=== PATIENT | female | born 1995 | race Hispanic/Latino ===

== ENCOUNTER 2017-11-03 22:56 | Emergency (ER) | payer OTHER ==
[2017-11-03] MEDS ORDERED: Ketorolac Tromethamine 30 MG/ML VIAL ONE (23:28)
== END 2017-11-03 23:45 | disposition home or self-care (01) ==
LOC: ERS 22:56
DX: M54.41 Lumbago with sciatica, right side (principal); F17.210 Nicotine dependence, cigarettes, uncomplicated
CPT/HCPCS: 96372; J1885

== ENCOUNTER 2018-03-01 22:35 | Emergency (ER) | payer OTHER ==
[2018-03-01] MEDS ORDERED: Ibuprofen 800 MG TAB ONE (22:42)
--- NOTE | 2018-03-01 23:36 | RAD ---
CHEST PA AND LATERAL: HISTORY: A 22-year-old female with a history of fever. FINDINGS: Heart size is normal. Lungs are clear. IMPRESSION: No acute intrathoracic disease. POS: [facility]
[2018-03-01 23:43] LABS: MONO NEGATIVE CONTROL ZONE White (Negative) (White); MONO POSITIVE CONTROL Pink Line (Positive) (PINK/RED); Mononucleosis NEGATIVE (NEGATIVE)
[2018-03-01 23:44] LABS: #Lymphocytes 1.9 thou/uL (1.20-3.40); #Neutrophils 6.4 thou/uL (1.40-6.50); %Basophils 0.4 % (0.0-1.0); %Eosinophils 0.3 % (0.0-10.0); %Lymphocytes 19.9 % (21.0-51.0); %Neutrophils 68.3 % (42.0-75.0); Hemoglobin 14.2 g/dL (12.0-16.0); Mean Corpuscular HGB CONC 34.6 g/dL (32.0-36.0); Mean Corpuscular Volume 83.6 fl (81.0-99.0); Mean Platelet Volume 7.9 fL (7.4-10.4); Platelet Count 252 thou/uL (130-400); RBC Distribution Width 12.4 % (11.5-14.5); White Blood Cell (WBC) Count 9.4 thou/uL (4.8-10.8)
[2018-03-02] LABS: BHCG - Serum Negative (NEGATIVE); Pregs Control Background? CLEAR/WHITE (CLR/WHITE); Pregs Control Bar Appear? YES (CONTROL BAR)
[2018-03-02 00:03] LABS: ALT (SGPT) 55 U/L (8-55); AST (SGOT) 34 U/L (5-34); Albumin 4.3 g/dL (3.5-5.0); Alkaline Phosphatase 93 U/L (40-150); Anion Gap 14 mmol/L (10-20); BUN (Urea Nitrogen) 10 mg/dL (7.0-18.7); Bilirubin, Total 0.7 mg/dL (0.2-1.2); Calc. Creatinine Clearance 0 mL/min (70-130); Calcium 9.1 mg/dL (7.8-10.44); Carbon Dioxide 22 mmol/L (22-29); Chloride 105 mmol/L (98-107); Estimated GFR-MDRD Greater than 90; Glucose 121 mg/dL (70-105); Potassium 3.6 mmol/L (3.5-5.1); Protein, Total 7.3 g/dL (6.0-8.3); Sodium 137 mmol/L (136-145)
[2018-03-02 00:06] LABS: Bilirubin Negative (Negative); Blood, Urine Moderate (Negative); Clarity CLEAR (Clear); Glucose, Urine (Dipstick) Negative (Negative); Leukocyte Small (Negative); Nitrite Negative (Negative); Protein, Urine (Dipstick) Negative (Neg-Trace); Specific Gravity, Urine 1.022 (1.002-1.036)
[2018-03-02 00:13] LABS: Pregnancy Test - Urine (BHCG) Negative (Negative); Pregu Control Background? CLEAR/WHITE (CLR/WHITE); Pregu Control Bar Appear? YES (CONTROL BAR); Specific Gravity 1.022 (1.002-1.036)
[2018-03-02 01:43] LABS: Bacteria/HPF None Seen HPF (None Seen); Crystals/HPF None Seen HPF (Negative); Hyaline Casts/LPF NONE SEEN LPF (0-3 Hyaline); Renal Epithelial None Seen HPF (0-3); Squamous Epithelial 0-3 HPF (0-3); Transitional Epithelial NONE SEEN HPF (0-3); WBC/HPF 0-3 HPF (0-3)
[2018-03-02] MEDS ORDERED: Dexamethasone 10 MG/ML VIAL ONE (01:46)
== END 2018-03-02 03:17 | disposition home or self-care (01) ==
LOC: ERS 22:35
DX: J20.9 Acute bronchitis, unspecified (principal); F17.210 Nicotine dependence, cigarettes, uncomplicated; Z71.6 Tobacco abuse counseling
CPT/HCPCS: 36415; 71046; 80053; 81003; 81015; 81025; 84703; 85025; 85652; 86140; 86308; 87081; 87430; 87804; 96361; 96374; 99406; J0696; J1100

== ENCOUNTER 2018-10-19 08:38 | Day surgery (SDC) | payer OTHER ==
[2018-10-19] MEDS ORDERED: Ketorolac Tromethamine 30 MG/ML VIAL ONE ×2 (09:17→14:43)
[2018-10-19 09:22] LABS: Pregnancy Test - Urine (BHCG) Negative (Negative); Pregu Control Bar Appear? YES (CONTROL BAR)
[2018-10-19 09:23] LABS: Bilirubin Negative (Negative); Blood, Urine Negative (Negative); Clarity CLEAR (Clear); Glucose, Urine (Dipstick) Negative (Negative); Leukocyte Negative (Negative); Nitrite Negative (Negative); Pregu Control Background? CLEAR/WHITE (CLR/WHITE); Protein, Urine (Dipstick) Negative (Neg-Trace); Specific Gravity, Urine 1.025 (1.002-1.036); Urobilinogen 0.2 mg/dL (0.2-1.0)
[2018-10-19 09:24] LABS: Specific Gravity 1.025 (1.002-1.036)
[2018-10-19 09:32] LABS: ALT (SGPT) 28 U/L (8-55); AST (SGOT) 20 U/L (5-34); Albumin 4.1 g/dL (3.5-5.0); Alkaline Phosphatase 85 U/L (40-150); Anion Gap 12 mmol/L (10-20); BUN (Urea Nitrogen) 10 mg/dL (7.0-18.7); Bilirubin, Total 0.5 mg/dL (0.2-1.2); Calc. Creatinine Clearance 0 mL/min (70-130); Calcium 9.5 mg/dL (7.8-10.44); Carbon Dioxide 25 mmol/L (22-29); Chloride 105 mmol/L (98-107); Estimated GFR-MDRD Greater than 90; Globulin 2.8 g/dL (2.4-3.5); Glucose 161 mg/dL (70-105); Potassium 3.9 mmol/L (3.5-5.1); Protein, Total 6.9 g/dL (6.0-8.3); Sodium 138 mmol/L (136-145)
[2018-10-19 09:41] LABS: #Basophils 0.1 thou/uL (0.0-0.2); #Eosinphils 0.1 thou/uL (0.0-0.7); #Monocytes 0.7 thou/uL (0.11-0.59); #Neutrophils 6.8 thou/uL (1.40-6.50); %Basophils 0.6 % (0.0-1.0); %Lymphocytes 21.1 % (21.0-51.0); %Monocytes 6.8 % (0.0-10.0); %Neutrophils 70.5 % (42.0-75.0); Hemoglobin 14.5 g/dL (12.0-16.0); Mean Corpuscular HGB CONC 32.4 g/dL (32.0-36.0); Mean Corpuscular Hemoglobin 27.5 pg (27.0-31.0); Mean Corpuscular Volume 84.6 fL (78.0-98.0); Mean Platelet Volume 8.7 fL (7.4-10.4); Platelet Count 297 thou/uL (130-400); RBC Distribution Width 12.3 % (11.5-14.5); Red Blood Cell (RBC) Count 5.28 mill/uL (4.20-5.40); White Blood Cell (WBC) Count 9.6 thou/uL (4.8-10.8)
--- NOTE | 2018-10-19 10:51 | ULT ---
RIGHT UPPER QUADRANT ULTRASOUND: History: 23-year-old female with history of right upper quadrant pain. FINDINGS: Coarse liver echogenicity, evidence for fatty change or other nonspecific hepatic parenchymal process . There is at least one large gallstone measuring approximately 4.1 cm in the neck of the gallbladder w ith some associated gallbladder wall thickening and minimal pericholecystic edematous changes. This l arge gallstone is not mobile. Common bile duct 0.6 cm. The gallbladder is mildly distended. No intrah epatic ductal dilatation. Visualized pancreas and right kidney are unremarkable. IMPRESSION: Large gallstone in the neck of the gallbladder which is nonmobile with some gallbladder wall thickeni ng and minimal pericholecystic edematous changes with borderline distention of the gallbladder. Louis y's sign was negative. Coarse liver echogenicity. 0.6 cm common bile duct without intrahepatic ductal dilatation. POS: [facility]
--- NOTE | 2018-10-19 11:54 | HP ---
DATE OF VISITATION: 10/19/2018 HISTORY OF PRESENT ILLNESS: Ms. Barger is a 23-year-old morbidly obese woman who was recently diagno sed with type 2 diabetes mellitus. The patient presented to the Emergency Department today complaini ng of a 2 week history of recurrent postprandial epigastric to right upper quadrant abdominal pain. She describes the pain as sharp, without any radiation. Pain is associated with multiple episodes of nausea and 2 bouts of nonbilious emesis yesterday. The pain has become worse and persistent since y . The patient denies any fevers or chills. She admits to abdominal bloating, but no diarrhea. PAST MEDICAL HISTORY: Significant for morbid obesity and a recently diagnosed type 2 diabetes mellit . PAST SURGICAL HISTORY: She denies any previous surgeries. 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 She denies any cigarette smoking, ethanol or illicit drug abuse. FAMILY HISTORY: Notable for diabetes mellitus and essential hypertension in both parents. Her fathe r also had heart disease. She has a paternal uncle with diabetes mellitus. There is no family histo ry of any gastrointestinal disorder or cancer. PREHOSPITALIZATION MEDICATIONS: Includes insulin. She does not recall the dosages. She also takes Glucophage. ALLERGIES: Patient denies any known drug allergies. REVIEW OF SYSTEMS: A 10-point review of systems is essentially unremarkable except for as stated in past medical history and chief complaint. PHYSICAL EXAMINATION: GENERAL: This reveals a 23-year-old morbidly obese woman who is otherwise coherent and interactive a nd appears stated age. The patient is alert and oriented x3. She appears to be in no acute distress at the time of my evaluation. VITAL SIGNS: Includes blood pressure 119/76, pulse 74, respiratory rate 16, temperature 97.6 degrees Fahrenheit. Oxygen saturation is 99% on room air. HEENT: Reveals normocephalic and atraumatic. Her pupils are equal, round, and reactive to light and accommodation. Extraocular muscles are intact bilaterally. She has no sclerae icterus present. HEART: Reveals regular rate and rhythm, no murmurs or gallops auscultated. LUNGS: Clear to auscultation bilaterally. Her breathing is regular and unlabored. ABDOMEN: Soft with epigastric to right upper quadrant tenderness to palpation. She has a positive M urphy sign. Liver and spleen are otherwise nonpalpable below costal margin. EXTREMITIES: Reveals 2+ radial and pedal pulses bilaterally. No ankle edema is present. NEUROLOGIC: Reveals no focal deficits present. PERTINENT LABORATORY FINDINGS: Today includes a CBC with 9600 white blood cells, hemoglobin and jr tocrit 14.5 and 44.7 respectively. Platelet count is 297,000. Metabolic profile: Sodium 138, potassium is 3.9, chloride is 105, bicarbonate is 25, BUN is 10, crea tinine 0.66, glucose 161. Total bilirubin 0.5, AST and ALT normal at 20 and 28 respectively. Alkali ne phosphatase is also normal at 85. I have personally reviewed the abdominal ultrasound, which shows a large solitary gallstone impacted in the gallbladder neck. The stone measures 4.6 cm in diameter. Common bile duct is dilated at 5.7 mm. There are no intrahepatic ductal dilatations noted. Gallbladder wall is mildly thickened and th ere is associated minimal pericholecystic fluid noted. IMPRESSION: 1. Acute cholecystitis with cholelithiasis. 2. Common bile duct dilatation likely secondary to extrinsic compression of the large solitary galls tone impacting the gallbladder neck. 3. Morbid obesity. 4. Type 2 diabetes mellitus. RECOMMENDATIONS: 1. I have given the patient an option to be discharged home with oral analgesics and bland diet and hopefully that will take care of her symptoms; however, I think this option will fail given the clini won and radiographic presentation. 2. The second option is to proceed with a laparoscopic cholecystectomy. 3. If cholecystectomy is chosen, I have informed the patient of the risks and benefits of the propos ed surgery to include, but not limited to bleeding, infection, injury to bile duct or surrounding str uctures. This information was given to the patient in the presence of her nurse. The patient indica eris understanding of information given and decided to proceed with laparoscopic cholecystectomy. She has clearly given consent for this admission and surgical intervention.
[2018-10-19 12:51] LABS: Lactic Acid 1.2 mmol/L (0.5-2.2)
[2018-10-19 12:56] LABS: ALT (SGPT) 32 U/L (8-55); AST (SGOT) 19 U/L (5-34); Albumin 4.1 g/dL (3.5-5.0); Alkaline Phosphatase 86 U/L (40-150); Anion Gap 11 mmol/L (10-20); BUN (Urea Nitrogen) 10 mg/dL (7.0-18.7); Bilirubin, Total 0.5 mg/dL (0.2-1.2); CK (CPK) 93 U/L (29-168); Calc. Creatinine Clearance 0 mL/min (70-130); Calcium 9.6 mg/dL (7.8-10.44); Carbon Dioxide 27 mmol/L (22-29); Chloride 106 mmol/L (98-107); Estimated GFR-MDRD Greater than 90; Globulin 2.5 g/dL (2.4-3.5); Glucose 163 mg/dL (70-105); Potassium 4.2 mmol/L (3.5-5.1); Protein, Total 6.6 g/dL (6.0-8.3); Sodium 140 mmol/L (136-145)
[2018-10-19 13:02] LABS: CKMB 0.6 ng/mL (0-6.6); Troponin I Less than 0.010 ng/mL (< 0.028)
[2018-10-19] MEDS ORDERED: Morphine 2 MG/ML SYRINGE ONE (13:29)
[2018-10-19] MEDS ORDERED: Glycopyrrolate 0.2 MG/ML 5 ML SYRINGE ONE (14:43)
[2018-10-19] MEDS ORDERED: Lidocaine 1% PF 5 ML VIAL ONE (14:43)
[2018-10-19] MEDS ORDERED: Metoclopramide HCl 10 MG/2 ML VIAL ONE (14:43)
[2018-10-19] MEDS ORDERED: PROPOFOL 200 MG/20 ML VIAL ONE (14:43)
[2018-10-19] MEDS ORDERED: PHENYLEPHRINE-NS 100 MCG/ML 10 ML SYRINGE ONE (14:43)
[2018-10-19] MEDS ORDERED: Ondansetron PF 4 MG/2 ML Vial ONE (14:43)
[2018-10-19] MEDS ORDERED: Bupivacaine/Epinephrine 0.25% 30 ML VIAL ONE (15:28)
[2018-10-19] MEDS ORDERED: Midazolam HCl 2 mg/2 ml Vial ONE ×2 (15:38→15:57)
[2018-10-19] MEDS ORDERED: Fentanyl 100 MCG/2 ML VIAL ONE ×2 (15:38→18:29)
[2018-10-19] MEDS ORDERED: cefOXitin 2 GM in Sodium Chloride 0.9% 100 ML IVPB SCH (16:15)
[2018-10-19] MEDS ORDERED: Promethazine HCl 25 MG/ML VIAL ONE (19:13)
[2018-10-19] MEDS ORDERED: Sodium Chloride 0.9% 10 ML ONE (19:14)
--- NOTE | 2018-10-19 22:22 | OP ---
DATE OF OPERATION: 10/19/2018 PREOPERATIVE DIAGNOSES: Acute cholecystitis, cholelithiasis. POSTOPERATIVE DIAGNOSES: Acute cholecystitis, cholelithiasis. PROCEDURES PERFORMED: Laparoscopic cholecystectomy. SURGEON: Joe Dash D.O. ANESTHESIA: General endotracheal. ESTIMATED BLOOD LOSS: 20 mL FLUIDS GIVEN: 1500 mL crystalloids. SPONGE AND INSTRUMENT COUNT: Certified as correct x2. COMPLICATIONS: None apparent at the time of operation. INDICATIONS FOR PROCEDURE: This is a 23-year-old morbidly obese woman who presented with recurrent a bdominal pain which is postprandial in nature. Clinical and radiographic examination was consistent with acute cholecystitis with cholelithiasis. The patient was brought to the operating room for laparoscopic cholecystectomy. Findings are consistent with markedly enlarged gallbladder completely encased by omental adhesions. DESCRIPTION OF PROCEDURE: Informed consent obtained from the patient who was brought to the operatin g room and placed in supine position. Following general anesthesia, Martines catheter was inserted and placed bedside drain. Abdomen was sterilely prepped and draped in usual fashion. The skin below the umbilicus was infiltrated with 0.25% Marcaine with epinephrine. A small curvilinear infraumbilical incision was made using 11 scalpel. Umbilical stalk grasped with Katie's and elevated. Veress need le was inserted through the incision and placed in the peritoneal cavity through which the abdomen wa s insufflated with 3 liters of CO2 gas. Intraabdominal pressure was noted at 2 mmHg. Following abdo eda insufflation, Veress needle was removed and a 5 mm trocar introduced into the pleural cavity us ing the Visiport under laparoscopy. Laparoscopy confirmed proper placement of the port, no injuries to underlying structures. Additional laparoscopy reveals gallbladder in the usual anatomic location completely encased by omental adhesions. Under direct laparoscopy, a 12 mm epigastric and two 5 mm r ight lateral subcostal ports were placed after the overlying skin was infiltrated with 0.25% Marcaine with epinephrine and appropriate incisions made. The patient was placed in a reverse Trendelenburg position rotated to her left. I introduced the [place] dissector with cautery using this to take do wn omental adhesions to expose a markedly distended and tense gallbladder in the usual anatomic locat ion. I attempted to grasp the fundus of the gallbladder without success. I decided to decompress th e gallbladder. Using Endo suction cup catheter with cautery, cholecystostomy was made at the dome of the gallbladder, evacuating excess white bile. I then applied a Prestige grasper to the fundus of t he gallbladder which was elevated cephalad. A second Prestige grasper introduced through the medial subcostal port grasping the Mccrary's pouch which was retracted laterally. Cystic artery dissected f ree from surrounding structures and divided between clips. I applied two clips proximally and one cl ip at the junction of the cystic artery and gallbladder. Cystic duct dissected free from surrounding structures and divided between clips in a similar fashion. Gallbladder itself was removed from the liver bed using cautery. The gallbladder was delivered of the abdominal cavity using an EndoCatch. Operative site was inspect ed for good hemostasis. All clips remain in place, no bile stains present. Finding no other patholo gy, laparoscopy was terminated. Fascia of the epigastric port was closed using 0 Vicryl suture and E ndo closure device under laparoscopy. Abdomen was desufflated. All ports and instruments removed an d accounted for. Skin incisions closed using 4-0 Monocryl suture in subcuticular fashion. Dermabond was applied over the incision and closure. The patient tolerated operation without any apparent com plication and was returned to the recovery room in satisfactory condition.
== END 2018-10-19 20:24 | disposition home or self-care (01) ==
LOC: ERS 08:38 → SDC 12:12
PROVIDERS: ATTEND Surgery
PROC: 0FT44ZZ Resection of Gallbladder, Percutaneous Endoscopic Approach (ICD-10-PCS; principal; 2018-10-19)
DX: K80.12 Calculus of gallbladder with acute and chronic cholecystitis without obstruction (principal); E66.01 Morbid (severe) obesity due to excess calories; E11.9 Type 2 diabetes mellitus without complications; Z79.4 Long term (current) use of insulin; Z79.899 Other long term (current) drug therapy
CPT/HCPCS: 36415; 36416; 76705; 80053; 81003; 81025; 82553; 83605; 84484; 85025; 87040; 88304; 96361; 96374; 96375; J0694; J1885; J2001; J2250; J2270; J2405; J2550; J2704; J2765; J3010; J7050

== ENCOUNTER 2019-01-31 07:51 | Outpatient (CLI) | payer OTHER ==
--- NOTE | 2019-01-31 13:26 | MRI ---
MRI LUMBAR SPINE: Date: 01/31/19 PROVIDED CLINICAL HISTORY: Back pain. FINDINGS: Five lumbar vertebral bodies are assumed. Lumbar alignment appears normal. Vertebral body heights alexis ear preserved. No focal concerning regional marrow signal abnormality is evident. The conus medullari s is normal in signal and terminates at an appropriate level. The visualized extraspinal soft tissues appear unremarkable. At L1-2, there is no significant central canal or foraminal narrowing. At L2-3, there is no significant central canal or foraminal narrowing. At L3-4, there is mild bilateral facet arthritis without significant central canal or foraminal narro wing apparent. At L4-5, there is disc desiccation and a broad based disc bulge with a superimposed central disc prot rusion. There is mild central canal stenosis. There is bilateral facet arthritis without significant foraminal narrowing. At L5-S1, there is a broad based disc bulge with a superimposed central disc protrusion. There is asy mmetric narrowing of the left lateral recess with potential for impingement on the traversing left S1 nerve root. Bilateral facet arthritis is noted. There is left-sided foraminal narrowing, mild. There is no significant right foraminal narrowing. IMPRESSION: Lower lumbar spine disc and facet degeneration with disc protrusions at L4-5 and L5-S1, as described above. POS: [facility]
== END 2019-01-31 07:52 | disposition home or self-care (01) ==
LOC: SCSMRI 07:51
PROVIDERS: ATTEND Family Medicine
DX: M51.16 Intervertebral disc disorders with radiculopathy, lumbar region (principal); M51.17 Intervertebral disc disorders with radiculopathy, lumbosacral region; M47.26 Other spondylosis with radiculopathy, lumbar region; M47.27 Other spondylosis with radiculopathy, lumbosacral region
CPT/HCPCS: 72148

== ENCOUNTER 2020-11-25 15:52 | Emergency (ER) | payer OTHER, SELFPAY ==
[2020-11-25] MEDS ORDERED: Morphine 4 MG/ML VIAL ONE (16:45)
[2020-11-25] MEDS ORDERED: Lidocaine 1% PF 5 ML VIAL ONE (16:45)
== END 2020-11-25 17:16 | disposition home or self-care (01) ==
LOC: ERS 15:52
DX: L02.416 Cutaneous abscess of left lower limb (principal); Z79.899 Other long term (current) drug therapy; Z79.4 Long term (current) use of insulin; E11.9 Type 2 diabetes mellitus without complications; F17.210 Nicotine dependence, cigarettes, uncomplicated
CPT/HCPCS: 10060; 96372; J2270

== ENCOUNTER 2020-11-27 15:07 | Emergency (ER) | payer SELFPAY | END 2020-11-27 17:11 | disposition home or self-care (01) | LOC: ERS 15:07 | DX: Z48.817 Encounter for surgical aftercare following surgery on the skin and subcutaneous tissue (principal); E11.9 Type 2 diabetes mellitus without complications | CPT/HCPCS: 99282 ==